=== PATIENT | male | born 1985 ===

== ENCOUNTER 2020-04-22 17:50 | Emergency (ER) | payer OTHER ==
[~2020-04-22] VITALS: Ht 180.3 cm; Wt 100.7 kg
== END 2020-04-22 20:54 | disposition home or self-care (01) ==
LOC: ER 17:50
DX: S61.225A Laceration with foreign body of left ring finger without damage to nail, initial encounter (principal); W26.8XXA Contact with other sharp object(s), not elsewhere classified, initial encounter; W45.8XXA Other foreign body or object entering through skin, initial encounter; Y93.89 Activity, other specified; Y92.69 Other specified industrial and construction area as the place of occurrence of the external cause; Y99.8 Other external cause status

== ENCOUNTER 2020-04-29 09:51 | Emergency (ER) | payer OTHER ==
[~2020-04-29] VITALS: Ht 180.3 cm; Wt 99.8 kg
== END 2020-04-29 10:30 | disposition home or self-care (01) ==
LOC: ER 09:51
DX: Z48.02 Encounter for removal of sutures (principal)